=== PATIENT | female | born 1995 | race Caucasian/White ===

== ENCOUNTER 2021-09-17 11:06 | Emergency (ER) | payer SELFPAY ==
[2021-09-17] MEDS ORDERED: Bupivacaine 0.5% 10 ML VIAL ONE (12:01)
== END 2021-09-17 12:28 | disposition home or self-care (01) ==
LOC: ERS 11:06
DX: K02.9 Dental caries, unspecified (principal); F17.290 Nicotine dependence, other tobacco product, uncomplicated
CPT/HCPCS: 64400; J3490